=== PATIENT | female | born 1985 | race Two or more races ===

== ENCOUNTER 2017-04-17 13:57 | Emergency (ER) | payer MEDICAID ==
--- NOTE | 2017-04-17 15:44 | EDPHY ---
H & P Stated Complaint: vaginal itching, 13 wks HCG HPI/ROS: HPI CHIEF COMPLAINT: Vaginal itching HISTORY OF PRESENT ILLNESS: This patient is a 31-year-old female, she is currently 13 weeks , she denies any pelvic pain or abdominal pain. She presents emergency room for vaginal itching x1 week. She denies any discharge. Denies any urinary symptoms. Additionally she checked her son in separately for constipation. They are in the same ER room, room 5. Past Medical History: No significant medical history except for thyroid disease Past Surgical History: No significant surgical history Social History: Lives locally, at bedside, son at bedside Family History: Noncontributory ROS REVIEW OF SYSTEMS: A comprehensive 10 point review of systems is otherwise negative aside from elements mentioned in the history of present illness. Exam Constitutional appears well nontoxic, triage nursing summary reviewed, vital signs reviewed, awake/alert. Eyes normal conjunctivae and sclera, EOMI, PERRLA. HENT normal inspection, atraumatic, moist mucus membranes, no epistaxis, neck supple/ no meningismus, no raccoon eyes. Respiratory clear to auscultation bilaterally, normal breath sounds, no respiratory distress, no wheezing. Cardiovascular rate normal, regular rhythm, no murmur, no edema, distal pulses normal. Gastrointestinal soft, non-tender, no rebound, no guarding, normal bowel sounds, no distension, no pulsatile mass. Genitourinary no CVA tenderness. Musculoskeletal no midline vertebral tenderness, full range of motion, no calf swelling, no tenderness of extremities, no meningismus, good pulses, neurovascularly intact. Skin pink, warm, & dry, no rash, skin atraumatic. Neurologic awake, alert and oriented x 3, AAOx3, moves all 4 extremities equally, motor intact, sensory intact, CN II-XII intact, normal cerebellar, normal vision, normal speech. Psychiatric normal mood/affect. Heme/Lymph/Immune no lymphadenopathy. Differential Diagnosis: Includes but is not limited to in a particular order, vaginitis, yeast infection, urinary tract infection in the setting of , doubt gonorrhea chlamydia Medical Decision Making: Plan for this patient pelvic exam, check urinalysis. Re-evaluation: 1629: Pelvic Exam performed: Shayy PARK as maintenance assistant, no external lesions visualized. White discharge in the posterior vault, cervical os is closed. No CMT. No adnexal fullness or pain. Urinalysis and pelvic specimens reviewed. She does have a urinary tract infection, given that she is she will be started on Macrobid and a urine culture will be sent. Additionally her pelvic specimens have been reviewed and shows yeast infection as well as BV. She will be started on metronidazole. She understands not drink alcohol while taking this. Additionally will give her prescription for Diflucan. Final diagnosis bacterial vaginitis, yeast infection, UTI, and Prescription given for Macrobid, metronidazole, and Diflucan. Recommend close follow up with her OBGYN. Source: Patient - Personal History Current Tetanus/Diphtheria Vaccine: Yes Current Tetanus Diphtheria and Acellular Pertussis (TDAP): Yes - Medical/Surgical History Hx Asthma: No Hx Chronic Respiratory Disease: No Hx Diabetes: No Hx Cardiac Disease: No Hx Renal Disease: No Hx Cirrhosis: No Hx Alcoholism: No Hx HIV/AIDS: No Hx Splenectomy or Spleen Trauma: No Other PMH: HYPOTHYROID, PRE DIABETES - Social History Smoking Status: Never smoked Constitutional: Initial Vital Signs Temperature (C) 36.7 C 04/17/17 14:31 Heart Rate 91 04/17/17 14:31 Respiratory Rate 18 04/17/17 14:31 Blood Pressure 105/66 04/17/17 14:31 O2 Sat (%) 98 04/17/17 14:31 O2 Delivery Mode Room Air Allergies/Adverse Reactions: No Known Allergies Allergy (Unverified 11/20/15 23:24) Home Medications: Medication Instructions Recorded Levothyroxine [Synthroid 75 mcg 11/20/15 (*)] Vit27&Calcium/Iron/FA 11/20/15 [] Fluconazole [Diflucan] 200 mg PO DAILY #4 tablet 04/17/17 Metronidazole 500 mg PO BID #14 tablet 04/17/17 Nitrofurantoin Monohyd/M-Cryst 100 mg PO BID #14 capsule 04/17/17 [Macrobid 100 mg Capsule] Medical Decision Making - Data Points Laboratory Results: 04/17/17 04/17/17 04/17/17 16:14 16:14 15:54 Urine Color YELLOW Urine Appearance HAZY Urine pH 6.0 (5.0-7.5) Ur Specific [place] 1.014 (1.002-1.030) Urine Protein NEGATIVE (NEGATIVE) Urine Ketones TRACE H (NEGATIVE) Urine Blood NEGATIVE (NEGATIVE) Urine Nitrate NEGATIVE (NEGATIVE) Urine Bilirubin NEGATIVE (NEGATIVE) Urine Urobilinogen NEGATIVE EU EU (0.2-1.0) Ur Leukocyte Esterase 2+ H (NEGATIVE) Urine RBC 1-3 /hpf /hpf (0-3) Urine WBC 10-15 /hpf H /hpf (0-3) Ur Epithelial Cells 1+ /lpf /lpf (NONE-1+) Urine Mucus TRACE /lpf /lpf (NONE-1+) Urine Glucose 3+ H (NEGATIVE) Trichomonas (Wet Prep) 1+ WBC H C.trachomatis RNA (TMA) Pending N.gonorrhoeae RNA (TMA) Pending Medications Given: Discontinued Medications Nitrofurantoin Macrocrystals (Macrobid) 100 mg PO EDNOW ONE PRN Reason: Protocol Stop: 04/17/17 16:15 Last Admin: 04/17/17 16:22 Dose: 100 mg Departure - Departure Disposition: Home, Routine, Self-Care Clinical Impression: Yeast infection Vaginitis Qualifiers: Chronicity: acute Qualified Code(s): N76.0 - Acute vaginitis UTI (urinary tract infection) Qualifiers: Urinary tract infection type: acute cystitis Hematuria presence: without hematuria Qualified Code(s): N30.00 - Acute cystitis without hematuria Condition: Good Instructions: Bacterial Vaginosis (ED), Urinary Tract Infection in Women (ED), Yeast Infection (ED), Vaginitis (ED) Additional Instructions: 1. Drink lots of fluids stay well-hydrated. 2. Follow up with her OBGYN 3. Antibiotics as prescribed take with food not on an empty stomach. 4. Return if worsening symptoms questions or concerns. Referrals: NONE *PRIMARY CARE P,. [Primary Care Provider] - As per Instructions Prescriptions: Fluconazole [Diflucan] 200 mg PO DAILY #4 tablet Metronidazole 500 mg PO BID #14 tablet Nitrofurantoin Monohyd/M-Cryst [Macrobid 100 mg Capsule] 100 mg PO BID #14 capsule
[2017-04-17] MEDS ORDERED: NITROFURANTOIN MACROBID 100 MG CAP PO ONE (16:14)
[2017-04-17 16:57] VITALS: BP 105/72; PULSE 88; RESP 16; TEMP 98.8; O2SAT 96
[2017-04-21 12:40] LABS: GC AMPLIFICATION GENPROBE NEGATIVE (NEGATIVE)
== END 2017-04-17 17:00 | disposition home or self-care (01) ==
DX: O23.591 Infection of other part of genital tract in pregnancy, first trimester (principal); O23.11 Infections of bladder in pregnancy, first trimester; B95.7 Other staphylococcus as the cause of diseases classified elsewhere; B37.9 Candidiasis, unspecified; Z3A.13 13 weeks gestation of pregnancy

== ENCOUNTER 2017-07-05 07:45 | Inpatient (IN) | payer MEDICAID ==
[2017-07-05] MEDS ORDERED: PHENAZOPYRIDINE HCL 200 MG TAB PO ONE (09:45)
[2017-07-05] MEDS ORDERED: MAGNESIUM SULF 4 GM/WATER 100 ML BAG IV ONE (11:26)
[2017-07-05] MEDS ORDERED: BETAMETHASONE IM SYRINGE IM ONE (11:35)
[2017-07-05] MEDS ORDERED: CALCIUM GLUC 10% 1 GM/10 ML VIAL IVP PRN (11:36)
[2017-07-05] MEDS ORDERED: MAGNESIUM SULF 4 GM/WATER 100 ML IV ONE (11:36)
[2017-07-05] MEDS ORDERED: TERBUTALINE SULFATE 1 MG/ML VIAL SC ONE (11:45)
[2017-07-05] MEDS ORDERED: LIDOCAINE 1% 300 MG/30 ML SDV ONE (11:46)
[2017-07-05] MEDS ORDERED: OLIVE OIL 118 ML BTL ONE (11:47)
[2017-07-05] MEDS ORDERED: OXYTOCIN 10 UNIT/ML VIAL ONE (11:47)
[2017-07-05] MEDS ORDERED: AMMONIA AROMATIC 1 EACH AMP IH ONE (11:47)
[2017-07-05] MEDS ORDERED: MISOPROSTOL 200 MCG TAB ONE (11:47)
[2017-07-05] MEDS ORDERED: TERBUTALINE SULFATE 1 MG/ML VIAL ONE (11:47)
[2017-07-05] MEDS ORDERED: MAGNESIUM SULF 2 GM/WATER 50 ML IV ONE (12:00)
[2017-07-05] MEDS ORDERED: AMPICILLIN SODIUM 2 GM in STERILE WATER INJ 25 ML IV ONE (12:00)
[2017-07-05] MEDS ORDERED: Mag Sulf 500 ML IV SCH (12:00)
[2017-07-05] MEDS ORDERED: MAGNESIUM SULF 2 GM/WATER 50 ML BAG IV ONE (12:02)
[2017-07-05 12:19] LABS: PLATELET COUNT 167 10^3/uL (150-400)
[2017-07-05] MEDS ORDERED: fentaNYL 100 MCG/2 ML INJ IVP ONE (12:30)
[2017-07-05] MEDS ORDERED: fentaNYL 100 MCG/2 ML INJ ONE (12:31)
[2017-07-05] MEDS ORDERED: SIMETHICONE 80 MG TAB CHEW PO PRN (13:07)
[2017-07-05] MEDS ORDERED: HYDROCORTISONE 0.5% CREAM TP PRN (13:07)
[2017-07-05] MEDS ORDERED: HYDROCODONE/APAP 5/325 TAB PO PRN (13:07)
[2017-07-05] MEDS ORDERED: ACETAMINOPHEN 325 MG TAB PO PRN (13:07)
[2017-07-05] MEDS ORDERED: DOCUSATE SODIUM 100 MG CAP PO PRN (13:07)
[2017-07-05] MEDS ORDERED: NITROFURANTOIN MACROBID 100 MG CAP PO SCH (13:15)
--- NOTE | 2017-07-05 13:19 | OBDEL ---
Info Type: Vaginal Presentation at Delivery: Vertex L&D Analgesia/Anesthesia Type: None GBS+: Yes Antibiotic Used for + GBS: Ampicillin Intrapartum Medications: Discontinued Medications Generic Name Dose Route Start Last Admin Trade Name Claudette PRN Reason Stop Dose Admin Betamethasone Acet/Betameth SodPhos 12 mg 07/05/17 11:35 07/05/17 11:49 Celestone Im Syringe IM 07/05/17 11:36 12 mg ONCE ONE Administration Magnesium Sulfate 100 mls @ 200 mls/hr 07/05/17 11:36 07/05/17 11:34 Magnesium Sulf 4 Gm (Premix) IV 07/05/17 12:05 100 mls ONCE ONE Administration Protocol Ampicillin Sodium 2 gm/ 25 mls @ 100 mls/hr 07/05/17 12:00 07/05/17 12:01 Sterile Water IV 07/05/17 12:14 25 mls ONCE ONE Administration Phenazopyridine HCl 200 mg 07/05/17 09:45 07/05/17 09:55 Pyridium PO 07/05/17 09:46 200 mg ONCE ONE Administration - Infant Care Provider Wire Winding Machine Tender/PRODUCT INFO SPECIALIST: Caitlin Becerra - Hospital Course Intrapartum: 07/05/17 13:11 Pt presented as a walk in patient complaining of lower abdominal pain and an episode of vaginal bleeding. Initial evaluation FHT's 140's and toco revealed no contractions. She had no bleeding here on labor and delivery. Urinalysis was performed and was suggestive of UTI. Ultrasound performed revealed fetus in cephalic presentation, EFW 678 g which is 5% compared to previous dating, with cervix completely effaced, funneled with BBOW through cervix. Sterile speculum confirmed complete cervical effacement and BBOW, likely imminent delivery. MgSo4, Ampicillin were immediately started and BMZ was given. NICU team was alerted and transport was called. She continued to have strong contractions and pelvic pain, pressure despite MgSo4 and we decided to facilitate delivery. AROM for clear fluid, baby descended and she delivered with 2 pushes with 1 contraction. Spontaneous delivery of placenta and intact perineum. Mon's bleeding is wnl, and baby will be transported to [facility] via flight for life. Indications for Delivery: Spontaneous Labor Vaginal Delivery - Delivery Provider Delivery Physician/CNM: Seema Yang - Labor and Delivery Onset of Contractions Date: 07/05/17 Onset of Contractions Time: 03:00 Onset of Contractions Type: Spontaneous Rupture of Membranes Date: 07/05/17 Rupture of Membranes Time: 12:20 Rupture of Membranes Type: Artificial Amniotic Fluid Color: Clear Dilation Complete Date: 07/05/17 Dilation Complete Time: 12:19 Placenta Delivery Date: 07/05/17 Placenta Delivery Time: 12:33 Total Hours of Labor: 9 Non-surgical Procedures: Amniotomy Laceration: Other (Specify) (none) Vaginal Sponge Count Correct: Yes Vaginal Needle Count Correct: Yes Vaginal Sweep Performed: No EBL: 200 Delivery Events: Other (Specify) (pre term delivery) Cord Gases: Cord Gases Cord Blood PCO2 TNP 07/05/17 12:16 Cord Base Excess TNP 07/05/17 12:16 Cord ABG pH TNP 07/05/17 12:16 Cord VBG pH 7.58 (7.20-7.42) H 07/05/17 12:16 - Medications Labor Augmentation/Induction Methods Used: None Operative Report - Delivery Cord Gases: Cord Gases Cord Blood PCO2 TNP 07/05/17 12:16 Cord Base Excess TNP 07/05/17 12:16 Cord ABG pH TNP 07/05/17 12:16 Cord VBG pH 7.58 (7.20-7.42) H 07/05/17 12:16 [place] Data YARA: 10/14/17 Gestational Age: 25 week(s) and 4 day(s) Mc Delivery Date: 07/05/17 Delivery Time: 12:21 Sex of : Male Score (1 Min): 4 Score (5 Min): 7 ICD10 Worksheet Patient Problems: Problems Problem Status Onset pre term delivery Acute
[2017-07-05] MEDS ORDERED: IBUPROFEN 600 MG TAB PO PRN (13:59)
--- NOTE | 2017-07-05 14:10 | GHP ---
[f rep st] PREOP HISTORY AND PHYSICAL DATE OF ADMISSION: 07/05/2017 ADMITTING DIAGNOSIS: Intrauterine at 25-4/7 weeks' gestation in labor. HISTORY OF PRESENT ILLNESS: The patient is a 31-year-old, 3, para 1-0-1-1, who is 25-4/7 wee ks' gestation with an EDC of 10/14/2017. Her dates were set by a 14-week ultrasound and LMP. She gil s had care at [facility] in [place]. She presented to [facility] c omplaining of lower abdominal pain, cramping, and an episode of vaginal bleeding at home. The patien t describes that she has been not feeling well for the past approximate week, lower abdominal crampin g and pain, episodes of vaginal discharge, some pink-tinged, and also nausea, upset stomach, and epis odes of vomiting. She called her clinic on with these complaints and was given reassurance that these are normal symptoms, but to present to the emergency room if she had worsening p ain or bleeding. She presented to [facility] this morning complaining of cramping an d the episode of bleeding. On evaluation she had no bleeding episodes here. Tocometer showed no reg ular contractions. Workup was performed. She had a urinalysis that was significant for blood, leuko cyte esterase, red blood cells, white blood cells, and bacteria. I assumed she had a significant UTI . She was given IV fluids and Pyridium for pain, and we were planning to give her antibiotics sukhi wade she did not have an ultrasound here at [facility]. She had an ultrasound performed to evaluate for possib le placenta previa or other issues in the . She had no previa. It was a viable fetus in ve rtex presentation, but it was noted to have complete cervical funneling with amniotic sac through the cervix. Immediate sterile speculum exam was performed after ultrasound findings were reported, and she indeed had a cervix that was completely effaced, approximately 7 or 8 cm dilated with a bulging b ag of water. The diagnosis of labor with probable eminent delivery was made. We quickly got started on magnesium for neural protection, a dose of betamethasone, and ampicillin for GBS prophyla xis. NICU team was assembled. Consult was made with experts at [facility] and [facility]. Clinical decision was made that patient would not be able to remain to transport d own to [place], so we decided to facilitate her delivery here and transport the baby when the baby was born. After her antibiotics were given and her Mag bolus was completed, it was obvious that her con tractions were not flowing down enough to safely transfer her still . Therefore, I performed an AROM for clear fluid and delivered the baby atraumatically. We waited to clamp the cord for 1 mi nute and facilitate the delivery. team was present to resuscitate the baby. Mom had a spon taneous delivery of her placenta, intact perineum, and minimal bleeding. Patient's significant risk factors were hypothyroidism, gestational diabetes on oral medica tion with poor control, and GBS bacteriuria. These records were obtained after the delivery of the andrew almaraz. Her past obstetrical history was significant for a delivery in [facility] at 41 weeks. She did not labor with that , and a D and C at 13 weeks in October of 2015. Those were her 2 pregn ancies. PAST GYNECOLOGICAL HISTORY: Noncontributory. Normal menstrual triad. No history of infections or a bnormal Paps. PAST MEDICAL HISTORY: Again is hypothyroidism and gestational diabetes. PAST SURGICAL HISTORY: D and C. ALLERGIES: She has no known drug allergies. LABORATORY DATA: Her labs include B positive, antibody negative, rubella immune, RPR nonreactive, he patitis negative, HIV negative. Gonorrhea and chlamydia negative. Hemoglobin of 12.7. 1-hour GTT w as elevated and her 3-hour all 3 values were abnormal. SOCIAL HISTORY: She is . She immigrated here from [facility]. She lives with her and her 6-year-old daughter. She is not working. Denies tobacco, alcohol, and drug use. FAMILY HISTORY: Noncontributory. PHYSICAL EXAMINATION: VITAL SIGNS: Currently, she is afebrile. Vital signs are stable. LUNGS: Cl ear to auscultation bilaterally. HEART: Regular rate and rhythm with no murmur. ABDOMEN: Soft, no ntender, nondistended. Normal bowel sounds. She is . Uterine fundus is firm, umbilicus - 4. Bleeding is scant. ASSESSMENT/PLAN: 31-year-old 3, para 1-0-1-1 who is 25-4/7 weeks' gestation with del richard. The patient will be watched carefully. If her bleeding is scant and she is stable and she de sires, we will discharge her so that she can go to [facility] to be with her baby. /[id number]/MODL
--- NOTE | 2017-07-05 14:31 | PDMN ---
Medical Necessity Medical necessity: C/M review: est. > 2 MN LOS for eval and TX of 25 4/7 weeks gestation IUP with vaginal delivery of viable male per Obstetrics delivery note, H/P.
--- NOTE | 2017-07-05 16:13 | OBPP ---
Progress Note Assessment/Plan: Assessment: 31 y/o s/p @ 254/7 week PTD Plan: D/c home today with Rx Macrobid and Ibuprofen. Follow up [facility] this week. 07/05/17 16:14 Subjective/ Course: 07/05/17 16:08 Pt is feeling well now. She has min cramping controlled with Ibuprofen, min lochia and she is ambulating and voiding without difficulty. She and her would like to d/c today so they can go to see the baby at [facility]. Objective: 07/05/17 11:40 Patient ABO/Rh B POSITIVE 07/05/17 11:40 Uterine Position/Fundal Height: Umbilicus -3 Uterine Tone: Firm Physical Exam - Physical Exam General Appearance: alert, no apparent distress Neck: non-tender, full range of motion, supple Respiratory: chest non-tender, lungs clear, normal breath sounds Cardiac/Chest: regular rate, rhythm Abdomen: normal bowel sounds Extremities: swelling (no), Ashly's sign (neg)
--- NOTE | 2017-07-05 16:16 | OBGCSDC ---
General Delivery Information - General Info : 3 Para: 2 Abortions: 0 Type: Vaginal L&D Analgesia/Anesthesia Type: None Admission Date: 07/05/17 Labs: Patient ABO/Rh B POSITIVE 07/05/17 11:40 Hct 38.1 % (38.0-47.0) 07/05/17 11:40 - Hospital Course Intrapartum: 07/05/17 13:11 Pt presented as a walk in patient complaining of lower abdominal pain and an episode of vaginal bleeding. Initial evaluation FHT's 140's and toco revealed no contractions. She had no bleeding here on labor and delivery. Urinalysis was performed and was suggestive of UTI. Ultrasound performed revealed fetus in cephalic presentation, EFW 678 g which is 5% compared to previous dating, with cervix completely effaced, funneled with BBOW through cervix. Sterile speculum confirmed complete cervical effacement and BBOW, likely imminent delivery. MgSo4, Ampicillin were immediately started and BMZ was given. NICU team was alerted and transport was called. She continued to have strong contractions and pelvic pain, pressure despite MgSo4 and we decided to facilitate delivery. AROM for clear fluid, baby descended and she delivered with 2 pushes with 1 contraction. Spontaneous delivery of placenta and intact perineum. Mon's bleeding is wnl, and baby will be transported to [facility] via flight for life. : 07/05/17 16:08 Pt is feeling well now. She has min cramping controlled with Ibuprofen, min lochia and she is ambulating and voiding without difficulty. She and her would like to d/c today so they can go to see the baby at [facility]. Vaginal - Delivery Provider Delivery Physician/CNM: Seema Yang - Diagnosis Labor: Spontaneous Rupture of Membranes Type: Artificial Amniotic Fluid Color: Clear Laceration: Other (Specify) (none) Delivery Events: Other (Specify) (pre term delivery) - Procedures Non-surgical Procedures: Amniotomy - Delivery Non-surgical Procedures: Amniotomy EBL: 200 Data YARA: 10/14/17 Gestational Age: 25 week(s) and 4 day(s) Mc Delivery Date: 07/05/17 Delivery Time: 12:21 Sex of : Male Score (1 Min): 4 Score (5 Min): 7 Discharge Information - Discharge Information Prescriptions: Ibuprofen [Motrin (*)] 600 mg PO Q6HRS PRN #30 tab PRN Reason: Pain, Inflammatory Nitrofurantoin Macrobid [Macrobid] 100 mg PO BID #14 cap Instruction/Follow Up: One Week, Six Weeks
== END 2017-07-05 20:28 | disposition home or self-care (01) | DRG 775 ==
LOC: FLD 07:45 → OBSVTOIN 14:16
PROVIDERS: ADMIT Obstetrics & Gynecology; ATTEND Obstetrics & Gynecology
DX: O60.12X0 Preterm labor second trimester with preterm delivery second trimester, not applicable or unspecified (principal); O24.425 Gestational diabetes mellitus in childbirth, controlled by oral hypoglycemic drugs; O99.284 Endocrine, nutritional and metabolic diseases complicating childbirth; O99.824 Streptococcus B carrier state complicating childbirth; E03.9 Hypothyroidism, unspecified; Z3A.25 25 weeks gestation of pregnancy; Z37.0 Single live birth
CPT/HCPCS: J0290; J0702; J2590; J3010; J3105; J3475